=== PATIENT | male | born 1995 | race Hispanic/Latino ===

== ENCOUNTER 2023-02-11 08:00 | Emergency (ER) | payer MEDICAID ==
[~2023-02-11] VITALS: Ht 144.8 cm; Wt 61.2 kg
[2023-02-11 08:02] VITALS: BP 105/63
== END 2023-02-11 10:45 | disposition home or self-care (01) ==
LOC: EDH 08:00
DX: S01.01XA Laceration without foreign body of scalp, initial encounter (principal); W18.39XA Other fall on same level, initial encounter; Y93.89 Activity, other specified; Y92.89 Other specified places as the place of occurrence of the external cause; Y99.8 Other external cause status; Z88.1 Allergy status to other antibiotic agents; Z88.5 Allergy status to narcotic agent; Z98.2 Presence of cerebrospinal fluid drainage device
CPT/HCPCS: 70450

== ENCOUNTER 2023-04-20 18:31 | Emergency (ER) | payer MEDICAID ==
[~2023-04-20] VITALS: Ht 144.8 cm; Wt 61.2 kg
[2023-04-20] MEDS ORDERED: LIDOCAINE HCL 1% 20 ML VIAL ONE (20:57)
[2023-04-20 21:29] VITALS: BP 118/59
== END 2023-04-20 21:31 | disposition home or self-care (01) ==
LOC: EDH 18:31
DX: S01.81XA Laceration without foreign body of other part of head, initial encounter (principal); Z88.1 Allergy status to other antibiotic agents; Z88.5 Allergy status to narcotic agent; Z98.2 Presence of cerebrospinal fluid drainage device; W07.XXXA Fall from chair, initial encounter; Y93.89 Activity, other specified; Y92.89 Other specified places as the place of occurrence of the external cause; Y99.8 Other external cause status
CPT/HCPCS: 12013; 70450; 72125